=== PATIENT | female | born 1975 | race Asian ===

== ENCOUNTER 2020-04-16 10:17 | Emergency (ER) | payer MEDICAID, OTHER, SELFPAY ==
[~2020-04-16] VITALS: Ht 170.2 cm; Wt 77.9 kg
[2020-04-16 10:22] VITALS: BP 146/88
[2020-04-16] MEDS ORDERED: CEFTRIAXONE 1,000 MG ONE (11:21)
[2020-04-16] MEDS ORDERED: AZITHROMYCIN 500 MG TABLET ONE (11:21)
[2020-04-16] MEDS ORDERED: CEFTRIAXONE 1,000 MG IM ONE (11:30)
[2020-04-16] MEDS ORDERED: AZITHROMYCIN 500 MG TABLET PO ONE (11:30)
== END 2020-04-16 11:42 | disposition home or self-care (01) ==
LOC: ED 11:18
DX: J15.9 Unspecified bacterial pneumonia (principal); Z20.828 Contact with and (suspected) exposure to other viral communicable diseases
CPT/HCPCS: 71045; 87635; 96372; 99284; J0696

== ENCOUNTER → 2020-08-22 | Outpatient (CLI) | payer BC, OTHER ==
[~2020-08-22] MED LIST: ACET-1600 PO; ATOR40TA78 PO; [UNRECOGNIZED DRUG - OTHER] PO
[2020-08-22 10:40] LABS: BASOPHILS % (AUTO) 1 % (0-1); EOSINOPHILS % (AUTO) 2 % (1-7); LYMPHOCYTES % (AUTO) 30 % (22-44); MEAN CORPUSCULAR HEMOGLOBIN 25.1 pg (27.0-34.8); MEAN CORPUSCULAR HGB CONC 32.5 g/dL (32.4-35.8); MEAN PLATELET VOLUME 8.5 fL (7.4-10.4); MONOCYTES % (AUTO) 6 % (2-9); NEUTROPHILS % (AUTO) 61 % (42-75); PLATELET COUNT 323 x10^3/uL (130-400); RED BLOOD COUNT 4.88 x10^6/uL (3.82-5.3); RED CELL DISTRIBUTION WIDTH 14.8 % (9.6-15.2)
[2020-08-22 10:41] LABS: MD NO
[2020-08-22 10:51] LABS: MICROSCOPIC INDICATED
[2020-08-22 10:53] LABS: ALBUMIN 4.3 g/dL (3.4-5.0); ANION GAP 7 mmol/L (5-15); CALCIUM 9.4 mg/dL (8.5-10.1); CHLORIDE 107 mmol/L (98-107)
[2020-08-22 10:58] LABS: ALANINE AMINOTRANSFERASE 32 U/L (12-78); ALKALINE PHOSPHATASE 86 U/L (45-117); BILIRUBIN,TOTAL 0.6 mg/dL (0.2-1.0); CREATININE 0.65 mg/dL (0.55-1.02); TOTAL PROTEIN 9.4 g/dL (6.4-8.2)
== END | disposition home or self-care (01) ==
LOC: STAR 09:21
PROVIDERS: ATTEND Student in an Organized Health Care Education/Training Program
DX: Z01.812 Encounter for preprocedural laboratory examination (principal); Z20.822 Contact with and (suspected) exposure to COVID-19; R10.2 Pelvic and perineal pain; N93.9 Abnormal uterine and vaginal bleeding, unspecified
CPT/HCPCS: 36415; 80053; 81001; 84702; 85025; 93005; U0003

== ENCOUNTER 2020-08-28 05:40 | Day surgery (SDC) | payer BC, OTHER ==
[~2020-08-28] VITALS: Ht 170.2 cm; Wt 79.1 kg
[2020-08-28 06:24] VITALS: BP 149/82
[2020-08-28] MEDS ORDERED: CHLORHEXIDINE 15 ML UDC PO ONE (06:30)
[2020-08-28] MEDS ORDERED: LACTATED RINGERS 1,000 ML IV SCH (06:30)
[2020-08-28 06:35] LABS: HCG UR SG 1.019 (1.003-1.030)
[2020-08-28] MEDS ORDERED: BUPIVACAINE/PF 0.25% ONE (06:43)
[2020-08-28] MEDS ORDERED: FLUORESCEIN SODIUM 500 MG/5 ML ONE (06:43)
[2020-08-28] MEDS ORDERED: EPINEPHRINE 1 MG/ML, 1ML ONE (06:43)
[2020-08-28] MEDS ORDERED: MIDAZOLAM 1 MG/ML, 2ML ONE (07:18)
[2020-08-28] MEDS ORDERED: FENTANYL PF 250 MCG/5ML ONE (07:18)
[2020-08-28] MEDS ORDERED: LIDOCAINE-MPF 2% ,5ML ONE (07:21)
[2020-08-28] MEDS ORDERED: PROPOFOL 10 MG/ML, 20ML ONE (07:21)
[2020-08-28] MEDS ORDERED: ROCURONIUM 10MG/ML,5ML ONE (07:22)
[2020-08-28] MEDS ORDERED: DEXAMETHASONE 4 MG/ML, 1ML ONE ×2 (07:38→09:03)
[2020-08-28] MEDS ORDERED: CEFAZOLIN 1,000 MG ONE ×2 (07:39→09:03)
[2020-08-28] MEDS ORDERED: LABETALOL 5MG/ML, 20ML IV PRN (08:00)
[2020-08-28] MEDS ORDERED: ACETAMINOPHEN 325 MG TABLET PO PRN (08:00)
[2020-08-28] MEDS ORDERED: hydrALAzine 20 MG/ML, 1ML IV PRN (08:00)
[2020-08-28] MEDS ORDERED: MEPERIDINE/PF 25MG/0.5ML IVPush PRN (08:00)
[2020-08-28] MEDS ORDERED: ONDANSETRON 2MG/ML, 2ML IVPush PRN (08:00)
[2020-08-28] MEDS ORDERED: DIAZEPAM 5 MG/ML, 2ML IVPush PRN (08:00)
[2020-08-28] MEDS ORDERED: EPHEDRINE 50 MG/ML, 1ML IVPush PRN (08:00)
[2020-08-28] MEDS ORDERED: MIDAZOLAM 1 MG/ML, 2ML IV PRN (08:00)
[2020-08-28] MEDS ORDERED: ALBUTEROL SULFATE 2.5 MG/3 ML NPPB PRN (08:00)
[2020-08-28] MEDS ORDERED: PROMETHAZINE 25 MG/ML, 1ML IVPush PRN (08:00)
[2020-08-28] MEDS ORDERED: HYDROmorphone 1 MG/ML, 1ML INJ IVPush PRN (08:00)
[2020-08-28] MEDS ORDERED: FENTANYL PF 100 MCG/2ML IV PRN (08:00)
[2020-08-28] MEDS ORDERED: OXYcodone 5 MG/5 ML ORAL.SOL UDC PO PRN (08:00)
[2020-08-28] MEDS ORDERED: PROMETHAZINE 12.5 MG SUPP PR PRN (08:00)
[2020-08-28] MEDS ORDERED: DIPHENHYDRAMINE 50 MG/ML, 1ML IVPush PRN ×2 (08:00)
[2020-08-28] MEDS ORDERED: INDIGO CARMINE 0.8%, 5ML ONE (08:56)
[2020-08-28] MEDS ORDERED: NEOSTIGMINE 1 MG/ML, 10ML ONE (09:03)
[2020-08-28] MEDS ORDERED: ONDANSETRON 2MG/ML, 2ML ONE ×2 (09:03)
[2020-08-28] MEDS ORDERED: OXYcodone 5 MG/5 ML ORAL.SOL UDC ONE (09:42)
[2020-08-28] MEDS ORDERED: KETOROLAC 30 MG/1 ML ONE (09:42)
[2020-08-28] MEDS ORDERED: FENTANYL PF 100 MCG/2ML ONE (09:42)
[2020-08-28] MEDS ORDERED: KETOROLAC 30 MG/1 ML IVPush PRN (10:00)
[2020-08-28] MEDS ORDERED: ACETAMINOPHEN 650 MG/20.3 ML UDC ONE (10:13)
[2020-08-28] MEDS ORDERED: PROMETHAZINE 25 MG SUPP PR ONE (13:10)
== END 2020-08-28 13:55 | disposition home or self-care (01) ==
LOC: OUT 05:40
PROVIDERS: ATTEND Student in an Organized Health Care Education/Training Program
DX: D25.1 Intramural leiomyoma of uterus (principal); N93.8 Other specified abnormal uterine and vaginal bleeding; N72 Inflammatory disease of cervix uteri; N84.0 Polyp of corpus uteri; E11.9 Type 2 diabetes mellitus without complications; E78.5 Hyperlipidemia, unspecified; Z79.899 Other long term (current) drug therapy
CPT/HCPCS: 36415; 58554; 81025; 82962; 86850; 86900; 88307; J0171; J0690; J1100; J1885; J2250; J2405; J2704; J2710; J3010; J7120